=== PATIENT | male | born 1990 | race Caucasian/White ===

== ENCOUNTER 2022-02-05 03:45 | Inpatient (IN) | payer MEDICAID, OTHER ==
[~2022-02-05] VITALS: Ht 182 cm; Wt 79.3 kg
[2022-02-05] MEDS ORDERED: MIDAZOLAM 2 MG/2 ML (VERSED) VIAL IVP ONE (06:00)
[2022-02-05] MEDS ORDERED: fentaNYL INJ 100 MCG/2 ML AMP IVP PRN ×2 (06:45)
[2022-02-05] MEDS: DexMEDEtomidine 250 ML DRIP 250 ML IV SCH ×2 (06:48→20:07)
[2022-02-05] MEDS: PROPOFOL DRIP (ICU) 100 ML IV SCH ×3 (06:48→20:08)
[2022-02-05] MEDS: LACTATED RINGERS 1,000 ML IV SCH ×2 (06:48→20:58)
--- NOTE | 2022-02-05 06:52 | Tele-ICU Progress Note ---
Progress Note 30M transferred from [place] for drug overdose. Recently moved to the area to get clean. Has overdosed about 25 times in the past year, often on heroin. Today he awoke his cousin and told her he was overdosing. The cousin and brother brought him to the ER where he collapsed in the doorway. He was ultimately intubated for airway protection. On arrival to ICU, patient is intubated, on propofol, very agitated. - AMS: secondary to drug overdose. Suspect contaminated samples - tox positive for amphetamines and MDMA, only known to use meth (had another similar report of unknown MDMA ingestion in another patient who believed he was using meth). Continue propofol, start precedex and PRN fentanyl. - Resp failure: intubated for airway protection and hypercapnic resp failure (unclear when he was intubated in relation to ABGs). Hypercapnia was improving at [place], repeat ABG pending. Will adjust vent as needed. - lactic acidosis: lactic 17 at OSH. Repeat ordered along with sepsis work up. More likely related to overdose and or shock state. Focused Exam Height, Weight, BMI Height: '" Weight: lbs. oz. kg; BMI Method: DANILO SCHROEDER MD Feb 05, 2022 06:52
[2022-02-05 07:00] VITALS: BP 95/75
[2022-02-05] MEDS ORDERED: LACTATED RINGERS 1,000 ML IV SCH ×3 (08:15→19:30)
[2022-02-05] MEDS ORDERED: LORazepam INJ 2 MG/ML (ATIVAN) VIAL IVP PRN (08:15)
[2022-02-05 08:41] LABS: ABG BASE EXCESS -4.3 MMOL/L (-2.5-2.5); ABG OXYGEN SATURATION 95 % (94-100); ABG PCO2 37 MMHG (35-45); ABG PH 7.36 (7.37-7.43); ABG PO2 69 MMHG (79-93); ABG TCO2 21.6 MMOL/L (21.0-31.0)
--- NOTE | 2022-02-05 08:42 | Tele-ICU Consult ---
History of Present Illness History of Present Illness Date Seen by Provider: Feb 05, 2022 Time Seen by Provider: 08:42 History of Present Illness (Tele-ICU Physician , follow up note ) New labs / Images reviewed Video assessment done using teleICU camera Discussed with RN. CPM - cont benzo PRN , precedex , fentanyl prn - try to wake for SBT assessment Hypotension probably related to sedatives, cont IVF , follow Allergies and Home Medications Allergies Coded Allergies: No Known Drug Allergies (Unverified , 02/05/22) Past Medical/Social/Family Hx Patient Social History Smoking Status: Unknown if Ever Smoked Current Status Communicates: Unable To Communicate Primary Language: German Focused Exam Height, Weight, BMI Height: '" Weight: lbs. oz. kg; 23.54 BMI Method: Exam Exam Patient acknowledged, consented, and participated in this virtual visit which was conducted using real time audio/video Vital Signs Date Time Temp Pulse Resp B/P (MAP) Pulse Ox O2 Delivery O2 Flow Rate FiO2 02/05/22 07:00 84 02/05/22 06:54 84 18 83/50 100 Mechanical Ventilator 50.00 02/05/22 06:48 10 126/52 02/05/22 06:48 100 106/52 02/05/22 06:46 82 17 82/55 99 Mechanical Ventilator 50.00 02/05/22 06:45 84 18 80/57 99 Mechanical Ventilator 50.00 02/05/22 06:30 88 18 88/62 98 Mechanical Ventilator 50.00 02/05/22 06:30 99 Mechanical Ventilator 50 02/05/22 06:15 91 14 84/60 99 Mechanical Ventilator 50.00 02/05/22 06:00 96 13 106/74 92 Mechanical Ventilator 50.00 02/05/22 06:00 36.0 92 17 106/74 100 Mechanical Ventilator 50.00 02/05/22 05:59 97 Height & Weight Height: '" Weight: lbs. oz. kg; 23.54 BMI Method: HUGO KOTHARI MD Feb 05, 2022 08:42
[2022-02-05 08:43] LABS: BILIRUBIN,URINE NEGATIVE (NEGATIVE); CLARITY,URINE CLOUDY; COLOR,URINE YELLOW; GLUCOSE, URINE (UA) NEGATIVE (NEGATIVE); KETONES,URINE NEGATIVE (NEGATIVE); LEUKOCYTE ESTERASE ,URINE NEGATIVE (NEGATIVE); NITRITE,URINE NEGATIVE (NEGATIVE); PROTEIN,URINE NEGATIVE (NEGATIVE)
[2022-02-05 08:43] LABS: ALLENS TEST YES-POS; INSPIRED O2 50%; PATIENT TEMP 36.1; VENTILATOR NO
[2022-02-05 08:53] LABS: BACTERIA,URINE NEGATIVE /HPF; URIC ACID CRYSTALS,URINE MODERATE /LPF; WBC,URINE RARE /HPF
[2022-02-05] MEDS ORDERED: DIAZEPAM INJ 10 MG/2 ML (VALIUM) SYR IVP PRN (09:00)
[2022-02-05 09:02] LABS: BASOPHILS % (AUTO) 0 % (0-10); EOSINOPHILS # (AUTO) 0.2 10^3/uL (0.0-0.3); EOSINOPHILS % (AUTO) 1 % (0-10); HEMATOCRIT 40 % (40-54); HEMOGLOBIN 12.8 g/dL (13.3-17.7); LYMPHOCYTES # (AUTO) 2.2 10^3/uL (1.0-4.0); LYMPHOCYTES % (AUTO) 13 % (12-44); MEAN CORPUSCULAR HEMOGLOBIN 29 pg (25-34); MEAN CORPUSCULAR HGB CONC 32 g/dL (32-36); MEAN CORPUSCULAR VOLUME 90 fL (80-99); MEAN PLATELET VOLUME 9.3 fL (9.0-12.2); MONOCYTES % (AUTO) 6 % (0-12); NEUTROPHILS # (AUTO) 13.9 10^3/uL (1.8-7.8); NEUTROPHILS % (AUTO) 79 % (42-75); PLATELET COUNT 314 10^3/uL (130-400); WHITE BLOOD COUNT 17.5 10^3/uL (4.3-11.0)
[2022-02-05 09:08] LABS: ALBUMIN 3.3 GM/DL (3.2-4.5); POTASSIUM 4.7 MMOL/L (3.6-5.0)
[2022-02-05 09:09] LABS: CALCIUM 8.3 MG/DL (8.5-10.1)
[2022-02-05 09:11] LABS: TOTAL PROTEIN 5.4 GM/DL (6.4-8.2)
[2022-02-05 09:12] LABS: BILIRUBIN,TOTAL 0.4 MG/DL (0.1-1.0)
[2022-02-05 09:13] LABS: FIBRIN DEGRADATION PRODUCTS 1.15 UG/ML (0.00-0.49); INR 1.2 (0.8-1.4); PROTHROMBIN TIME PATIENT 15.1 SEC (12.2-14.7)
[2022-02-05 09:14] LABS: CREATININE SERUM 1.26 MG/DL (0.60-1.30); PHOSPHORUS 3.3 MG/DL (2.3-4.7)
[2022-02-05 09:17] LABS: MAGNESIUM 1.6 MG/DL (1.6-2.4)
[2022-02-05 10:02] LABS: BAND NEUTROPHILS 0 %; BASOPHILS % (MANUAL) 0 %; EOSINOPHILS % (MANUAL) 0 %; LYMPHOCYTES % (MANUAL) 13 %; MONOCYTES % (MANUAL) 3 %; NEUTROPHILS % (MANUAL) 84 %; RBC MORPH NORMAL
[2022-02-05 10:50] VITALS: BP 72/38
[2022-02-05] MEDS ORDERED: CALCIUM CARBONATE 500 MG (TUMS) TAB.CHEW PO PRN (11:00)
[2022-02-05] MEDS ORDERED: ONDANSETRON 4 MG (ZOFRAN) ORAL DISSOLVE TAB PO PRN (11:00)
[2022-02-05] MEDS ORDERED: diphenhydrAMINE 25 MG TAB (BENADRYL) PO PRN (11:00)
[2022-02-05] MEDS ORDERED: diphenhydrAMINE 50 MG/ML INJ (BENADRYL) IVP PRN (11:00)
[2022-02-05] MEDS ORDERED: ONDANSETRON 4 MG/2 ML (SDV) Z0FRAN IV PRN (11:00)
[2022-02-05] MEDS ORDERED: ACETAMINOPHEN 325 MG TABLET PO PRN (11:00)
[2022-02-05] MEDS ORDERED: polyethylene glycoL POWDER 17 GM (MIRALAX) PACK PO PRN (11:00)
[2022-02-05] MEDS ORDERED: EPINEPHrine 1 MG INJECTION 4 MG in NS (IVPB) 248 ML IV SCH (11:00)
[2022-02-05] MEDS ORDERED: ANTACID SUSP 30 ML UDC (MYLANTA) PO PRN (11:00)
[2022-02-05] MEDS ORDERED: MELATONIN 3 MG TABLET PO PRN (11:00)
[2022-02-05] MEDS ORDERED: NOREPINEPHRINE 8 MG/250 ML 250 ML IV ONE (11:05)
[2022-02-05] MEDS: NOREPINEPHRINE 8 MG/250 ML 250 ML IV SCH (11:10)
[2022-02-05] MEDS: fentaNYL INJ 100 MCG/2 ML AMP IVP PRN (11:23)
--- NOTE | 2022-02-05 11:53 | Diagnostic Imaging Report ---
EXAMINATION: Chest, one view. HISTORY: Intubation. COMPARISON: None available. FINDINGS: Heart size and pulmonary vasculature are normal. The lungs are clear without consolidation, pleural effusion, or pneumothorax. The osseous structures are intact. Endotracheal tube is unchanged above the drew. An enteric catheter is present coursing below the diaphragm. IMPRESSION: 1. No acute radiographic abnormality in the chest. Dictated by: Dictated on workstation # [id number]
[2022-02-05] MEDS: VASOPRESSIN INJECTION 20 UNIT in NS (IVPB) 100 ML IV SCH (11:56)
--- NOTE | 2022-02-05 12:57 | Diagnostic Imaging Report ---
Indication: PICC line placement. Time of Exam: 12:14 PM Comparison is made with prior chest earlier same day. ET tube has tip above the drew. NG tube passes into the stomach. There is a right upper extremity PICC line with tip overlying the SVC right atrial junction. Lungs are clear. No effusion or pneumothorax is seen. Impression: Satisfactory PICC line placement. Dictated by: Dictated on workstation # [id number]
[2022-02-05] MEDS ORDERED: VANCOMYCIN INJECTION 0.1 MG in NS (IVPB) 250 ML IV SCH (13:00)
[2022-02-05 13:13] LABS: AMPHETAMINE SCREEN, URINE POSITIVE (NEGATIVE); BARBITURATE SCREEN URINE NEGATIVE (NEGATIVE); BENZODIAZEPINES SCREEN URINE NEGATIVE (NEGATIVE); CANNABINOID SCREEN, URINE POSITIVE (NEGATIVE); COCAINE SCREEN URINE NEGATIVE (NEGATIVE); METHADONE STAT NEGATIVE (NEGATIVE); OPIATE SCREEN URINE NEGATIVE (NEGATIVE); OXYCODONE STAT NEGATIVE (NEGATIVE); PROPOXYPHENE STAT NEGATIVE (NEGATIVE); TRICYCLIC ANTIDEPRESSANTS SCRE NEGATIVE (NEGATIVE)
[2022-02-05] MEDS ORDERED: PIPERACILLIN SODIUM/TAZOBACTAM 4.5 GM in NS (IVPB) 100 ML IV NR (13:15)
[2022-02-05] MEDS ORDERED: VANCOMYCIN 1500 MG/NS 500 ML IVPB IV SCH ×2 (14:00)
[2022-02-05] MEDS: inSUlin ASPART (NovoLOG) 1 UNIT/0.01 ML (CHARGE PER UNIT) SC SCH ×2 (14:56→17:23)
[2022-02-05] MEDS: ENOXAPARIN 40 MG/0.4 ML (LOVENOX) SYR SC SCH (14:56)
[2022-02-05 15:45] VITALS: BP 114/84
[2022-02-05 17:36] LABS: CALCIUM 8.4 MG/DL (8.5-10.1)
[2022-02-05 17:54] LABS: CREATININE SERUM 0.97 MG/DL (0.60-1.30)
[2022-02-05 18:40] VITALS: BP 96/66
--- NOTE | 2022-02-05 18:47 | History & Physical-Hospitalist ---
History of Present Illness HPI/Chief Complaint Froy Ludwig is a 30 year old male with PMH polysubstance abuse who recently moved to the area to try to get clean. He reportedly told his cousin he was overdosing and he was taken to the [place] ER. He apparently collapsed at the door of the ER. He was intubated for airway protection. He is unable to provide any history due to sedation. There is no family at the beside. Source: RN/MD Exam Limitations: clinical condition Date Seen 02/05/22 Time Seen by a Provider: 10:50 Attending Physician PCP Admitting Physician: Jon Franco MD Attending Physician: Jon Franco MD Referring Physician Date of Admission Feb 05, 2022 at 05:44 Home Medications & Allergies Home Medications Reviewed patient Home Medication Reconciliation performed by pharmacy medication reconciliations radiological technician and/or nursing. Patients Allergies have been reviewed. Allergies Allergies Coded Allergies No Known Drug Allergies (Unverified02/05/22) Past Npctvtf-Lmuptx-Cnsxxh Hx Patient Social History Smoking Status: Unknown if Ever Smoked Current Status Communicates: Unable To Communicate Primary Language: Romanian Family Medical History No Pertinent Family Hx Review of Systems Constitutional: see HPI Physical Exam Physical Exam Vital Signs Vital Signs - First Documented 02/05/22 02/05/22 05:59 06:30 Pulse 97 FiO2 50 Capillary Refill : Height, Weight, BMI Height: '" Weight: lbs. oz. kg; 23.54 BMI Method: General Appearance: No Apparent Distress, WD/WN, Other (intubated and sedated) Neck: Normal Inspection, Supple Respiratory: Lungs Clear, No Respiratory Distress, Other (intubated and mechanically ventilated) Cardiovascular: Regular Rate, Rhythm, No Edema, No Murmur Gastrointestinal: Normal Bowel Sounds, Soft Extremity: Normal Inspection, No Pedal Edema Neurologic/Psychiatric: Other (sedated) Skin: Normal Color, Cool Results Results/Procedures Labs Laboratory Tests 02/05/22 08:33 02/05/22 13:38 Patient resulted labs reviewed. Imaging: Reviewed Imaging Films, Reviewed Imaging Report Assessment/Plan Admission Diagnosis Polysubstance overdose Admission Status: Inpatient Order (span 2 midnights) Reason for Inpatient Admission: Mechanical ventilation Assessment and Plan Polysubstance overdose Shock Lactic acidosis UDS positvie for methamphetamine, amphetamine, and cannibis, reportedly on other drugs as well Plasma drug screen pending Possibly septic, leukocytosis and tachycardia No infectious source identified at this time Procal elevated Blood pressures very low Begin Levophed, pressors as needed Begin Vanc and Zosyn IV fluids TeleICU consulted Social work consulted DVT prophylaxis: Lovenox Critical Care Critically Ill Patient Diagnosis/Problems Diagnosis/Problems (1) Polysubstance overdose Status: Acute Qualifiers: Encounter type: initial encounter Injury intent: undetermined intent Qualified Codes: T50.904A - Poisoning by unspecified drugs, medicaments and biological substances, undetermined, initial encounter (2) Endotracheally intubated Status: Acute (3) Shock Status: Acute (4) Lactic acidosis Status: Acute RYAN JAIMES MD Feb 05, 2022 18:47
[2022-02-05] MEDS ORDERED: ENOXAPARIN 40 MG/0.4 ML (LOVENOX) SYR SQ SCH (19:00)
[2022-02-05] MEDS ORDERED: NS IV 1000 ML 1,000 ML ONE (19:26)
[2022-02-05] MEDS: DOPamine DRIP 250 ML IV SCH (19:37)
[2022-02-05] MEDS: PIPERACILLIN SODIUM/TAZOBACTAM 4.5 GM in NS (IVPB) 100 ML IV SCH (19:43)
[2022-02-05 22:10] VITALS: BP 117/73
[2022-02-06] MEDS: VASOPRESSIN INJECTION 20 UNIT in NS (IVPB) 100 ML IV SCH ×3 (00:50→20:42)
[2022-02-06] MEDS: inSUlin ASPART (NovoLOG) 1 UNIT/0.01 ML (CHARGE PER UNIT) SC SCH ×3 (00:50→12:00)
[2022-02-06] MEDS: PROPOFOL DRIP (ICU) 100 ML IV SCH ×2 (01:02→05:52)
[2022-02-06] MEDS: VANCOMYCIN 1250 MG/NS 250 ML IVPB IV SCH ×4 (02:00→14:20)
[2022-02-06 02:41] VITALS: BP 128/77
[2022-02-06] MEDS: fentaNYL INJ 100 MCG/2 ML AMP IVP PRN (04:50)
[2022-02-06] MEDS: PIPERACILLIN SODIUM/TAZOBACTAM 4.5 GM in NS (IVPB) 100 ML IV SCH ×3 (04:51→20:56)
[2022-02-06] MEDS: NOREPINEPHRINE 8 MG/250 ML 250 ML IV SCH ×2 (05:09→20:42)
[2022-02-06 05:10] LABS: ABG BASE EXCESS -1.4 MMOL/L (-2.5-2.5); ABG OXYGEN SATURATION 98 % (94-100); ABG PCO2 37 MMHG (35-45); ABG PH 7.41 (7.37-7.43); ABG PO2 88 MMHG (79-93); ABG TCO2 23.8 MMOL/L (21.0-31.0)
[2022-02-06 05:11] LABS: ALLENS TEST YES-POS; BASOPHILS % (AUTO) 0 % (0-10); EOSINOPHILS # (AUTO) 0.9 10^3/uL (0.0-0.3); EOSINOPHILS % (AUTO) 8 % (0-10); HEMATOCRIT 37 % (40-54); HEMOGLOBIN 12.6 g/dL (13.3-17.7); INSPIRED O2 21%; LYMPHOCYTES # (AUTO) 1.8 10^3/uL (1.0-4.0); LYMPHOCYTES % (AUTO) 15 % (12-44); MEAN CORPUSCULAR HEMOGLOBIN 30 pg (25-34); MEAN CORPUSCULAR HGB CONC 34 g/dL (32-36); MEAN CORPUSCULAR VOLUME 89 fL (80-99); MEAN PLATELET VOLUME 9.5 fL (9.0-12.2); MONOCYTES # (AUTO) 0.7 10^3/uL (0.0-1.0); MONOCYTES % (AUTO) 6 % (0-12); NEUTROPHILS # (AUTO) 8.7 10^3/uL (1.8-7.8); NEUTROPHILS % (AUTO) 71 % (42-75); PATIENT TEMP 36.7; PLATELET COUNT 281 10^3/uL (130-400); VENTILATOR YES; WHITE BLOOD COUNT 12.2 10^3/uL (4.3-11.0)
[2022-02-06 05:22] LABS: POTASSIUM 4.1 MMOL/L (3.6-5.0)
[2022-02-06 05:23] LABS: CALCIUM 7.9 MG/DL (8.5-10.1)
[2022-02-06 05:27] LABS: CREATININE SERUM 0.85 MG/DL (0.60-1.30); PHOSPHORUS 3.1 MG/DL (2.3-4.7)
[2022-02-06 05:30] LABS: MAGNESIUM 1.7 MG/DL (1.6-2.4)
[2022-02-06] MEDS: POTASSIUM CL 10MEQ/50ML IVPB 50 ML IV SCH (05:55)
[2022-02-06] MEDS: KCL 20 MEQ TAB (K-DUR) PO SCH (05:56)
[2022-02-06] MEDS: MAGNESIUM 1 GM/100 ML IVPB 100 ML IV SCH ×2 (05:56→06:03)
[2022-02-06] MEDS ORDERED: KCL 20 MEQ TAB (K-DUR) PO SCH (06:00)
[2022-02-06] MEDS ORDERED: POTASSIUM CL 10MEQ/50ML IVPB 50 ML IV SCH (06:00)
[2022-02-06] MEDS ORDERED: MAGNESIUM 1 GM/100 ML IVPB 100 ML IV SCH (06:00)
[2022-02-06 06:38] VITALS: BP 121/73
--- NOTE | 2022-02-06 09:36 | Tele-ICU Progress Note ---
Subjective Date Seen by a Provider: Feb 06, 2022 Time Seen by a Provider: 09:36 Subjective/Events-last exam Available chart/vitals/labs/images reviewed. Video assessment done using telemetry ICU camera, rest of exam as per RN. Discussion with the RN, exam as per RN. Hospital course This patient admitted with overdose of methamphetamine, cannabis and became unresponsive requiring intubation and mechanical ventilation. Currently he is sedated. Hemodynamically stable and urine output is good he is afebrile. We will plan to wean sedation and try if possible on SBT today. Review of Systems ROS PER RN Sepsis Event Evaluation Height, Weight, BMI Height: '" Weight: lbs. oz. kg; 23.54 BMI Method: Focused Exam Lactate Level 02/05/22 08:33: Lactic Acid Level 2.24*H 02/05/22 10:33: Lactic Acid Level 2.03*H 02/05/22 13:38: Lactic Acid Level 1.46 Exam Exam Patient acknowledged, consented, and participated in this virtual visit which was conducted using real time audio/video Vital Signs Date Time Temp Pulse Resp B/P (MAP) Pulse Ox O2 Delivery O2 Flow Rate FiO2 02/06/22 08:00 36.6 02/06/22 08:00 97 Mechanical Ventilator 21 02/06/22 06:38 80 18 97 21 02/06/22 06:00 84 17 120/81 97 Mechanical Ventilator 21.00 02/06/22 05:52 66 128/77 02/06/22 05:00 64 17 127/77 98 Mechanical Ventilator 21.00 02/06/22 04:00 67 18 129/83 98 Mechanical Ventilator 21.00 02/06/22 04:00 Mechanical Ventilator 21 02/06/22 03:00 67 17 128/82 98 Mechanical Ventilator 21.00 02/06/22 02:41 66 18 98 21 02/06/22 02:00 67 17 129/79 98 Mechanical Ventilator 21.00 02/06/22 02:00 36.7 02/06/22 01:02 64 124/74 02/06/22 01:00 64 02/06/22 01:00 64 17 125/80 98 Mechanical Ventilator 21.00 02/06/22 00:00 64 18 124/74 97 Mechanical Ventilator 21.00 02/06/22 00:00 36.0 7/13/22 23:59 Mechanical Ventilator 35 02/05/22 23:00 66 18 122/73 97 Mechanical Ventilator 21.00 02/05/22 22:10 67 18 100 35 02/05/22 22:00 68 17 117/68 100 Mechanical Ventilator 21.00 02/05/22 21:00 72 18 118/71 100 Mechanical Ventilator 35.00 02/05/22 20:08 75 96/66 02/05/22 20:07 75 96/66 02/05/22 20:00 36.3 Mechanical Ventilator 35.00 02/05/22 20:00 Mechanical Ventilator 35 02/05/22 20:00 66 18 126/70 99 Mechanical Ventilator 35.00 02/05/22 19:37 75 96/66 02/05/22 19:00 75 17 141/81 100 Mechanical Ventilator 35.00 02/05/22 19:00 75 02/05/22 18:44 100 Mechanical Ventilator 35.00 02/05/22 18:40 75 18 100 50 02/05/22 18:00 76 17 92/69 100 Mechanical Ventilator 50.00 02/05/22 17:00 75 17 102/73 100 Mechanical Ventilator 50.00 02/05/22 16:41 36.5 02/05/22 16:41 100 Mechanical Ventilator 50.00 02/05/22 16:40 98/71 02/05/22 16:25 Mechanical Ventilator 50 02/05/22 16:00 75 17 98/64 100 Mechanical Ventilator 80.00 02/05/22 15:45 72 18 100 60 02/05/22 15:00 80 18 113/82 100 Mechanical Ventilator 80.00 02/05/22 14:00 75 18 113/86 100 Mechanical Ventilator 80.00 02/05/22 13:00 77 18 111/86 100 Mechanical Ventilator 80.00 02/05/22 13:00 44 02/05/22 12:35 Mechanical Ventilator 80 02/05/22 12:00 61 17 116/84 100 Mechanical Ventilator 80.00 02/05/22 11:10 75 71/37 02/05/22 11:00 75 18 71/37 96 Mechanical Ventilator 21.00 02/05/22 10:50 80 18 96 21 02/05/22 10:00 83 18 62/40 97 Mechanical Ventilator 21.00 I & O 02/06/22 06:59 Intake Total 2100 ml Output Total 3220 ml Balance -1120 ml Height & Weight Height: '" Weight: lbs. oz. kg; 23.54 BMI Method: General Appearance: No Apparent Distress, WD/WN, Other (intubated and sedated) Neck: Normal Inspection, Supple Respiratory: Lungs Clear, No Respiratory Distress, Other (intubated and mechanically ventilated) Cardiovascular: Regular Rate, Rhythm, No Edema, No Murmur Extremity: Normal Inspection, No Pedal Edema Neurologic/Psychiatric: Other (sedated) Skin: Normal Color, Cool Other comments PE PER RN Results Lab Laboratory Tests 02/05/22 08:33 02/05/22 13:38 02/06/22 04:55 Assessment/Plan Assessment/Plan 1. Acute hypoxic respiratory failure secondary to drug overdose 2. Polysubstance abuse. Recommendations 1. We will decrease sedation and try SBT today. 2. Continue hydration with IV fluids 3. DVT prophylaxis and ulcer prophylaxis 4. Broad spectrum antibiotics per primary care Critical Care: Ventilator Management Time spent with patient (mins): 35 PETER PIEDRA MD Feb 06, 2022 09:36
[2022-02-06 09:56] VITALS: BP 109/69
[2022-02-06] MEDS: LACTATED RINGERS 1,000 ML IV SCH ×2 (10:22→22:53)
[2022-02-06] MEDS: ENOXAPARIN 40 MG/0.4 ML (LOVENOX) SYR SC SCH (10:23)
[2022-02-06 10:33] VITALS: BP 106/73
[2022-02-06 11:20] LABS: ABG BASE EXCESS -0.8 MMOL/L (-2.5-2.5); ABG OXYGEN SATURATION 96 % (94-100); ABG PCO2 40 MMHG (35-45); ABG PH 7.39 (7.37-7.43); ABG PO2 76 MMHG (79-93); ABG TCO2 24.9 MMOL/L (21.0-31.0)
[2022-02-06 11:22] LABS: ALLENS TEST YES-POS; INSPIRED O2 21%
[2022-02-06 11:23] LABS: PATIENT TEMP 36.5; VENTILATOR NO
[2022-02-06] MEDS ORDERED: methylPREDNISolone 125 MG (Solu-MEDROL) VIAL IVP NR (14:45)
[2022-02-06] MEDS ORDERED: diphenhydrAMINE 50 MG/ML INJ (BENADRYL) IVP NR (14:45)
[2022-02-06] MEDS ORDERED: FAMOTIDINE 20MG/2ML IV (PEPCID) IVP NR (14:45)
[2022-02-06] MEDS ORDERED: diphenhydrAMINE 50 MG/ML INJ (BENADRYL) IVP PRN (14:45)
--- NOTE | 2022-02-06 16:37 | Progress Note - Hospitalist ---
Subjective HPI/CC On Admission Date Seen by Provider: Feb 06, 2022 Time Seen by Provider: 09:25 Froy Ludwig is a 30 year old male with PMH polysubstance abuse who recently moved to the area to try to get clean. He reportedly told his cousin he was overdosing and he was taken to the [place] ER. He apparently collapsed at the door of the ER. He was intubated for airway protection. He is unable to provide any history due to sedation. There is no family at the beside. Subjective/Events-last exam He remains intubated and sedated. Focused Exam Lactate Level 02/05/22 08:33: Lactic Acid Level 2.24*H 02/05/22 10:33: Lactic Acid Level 2.03*H 02/05/22 13:38: Lactic Acid Level 1.46 Objective Exam Vital Signs Vital Signs Date Time Temp Pulse Resp B/P (MAP) Pulse Ox O2 Delivery O2 Flow Rate FiO2 02/06/22 12:00 Nasal Cannula 2.00 02/06/22 11:00 86 9 109/63 98 02/06/22 10:33 21 02/06/22 08:00 36.6 Capillary Refill : General Appearance: No Apparent Distress, WD/WN, Other (intubated) Respiratory: Lungs Clear, No Respiratory Distress, Other (mechanically ventilated) Cardiovascular: Regular Rate, Rhythm, No Murmur Gastrointestinal: Normal Bowel Sounds, Soft Extremity: Normal Inspection, No Pedal Edema Neurologic/Psychiatric: Other (sedated) Skin: Normal Color, Warm/Dry Results/Procedures Lab Laboratory Tests 02/06/22 04:55 Patient resulted labs reviewed. Imaging: Reviewed Imaging Report Assessment/Plan Assessment and Plan Assess & Plan/Chief Complaint Polysubstance overdose Shock UDS positvie for methamphetamine, amphetamine, and cannibis, reportedly on other drugs as well No infectious source identified at this time Procal elevated Currently on Dopamine Stop Vanc Continue Zosyn IV fluids TeleICU following Social work consulted DVT prophylaxis: Lovenox Lactic acidosis, resolved Critical Care Ventilator Management Diagnosis/Problems Diagnosis/Problems (1) Polysubstance overdose Status: Acute Qualifiers: Encounter type: initial encounter Injury intent: undetermined intent Qualified Codes: T50.904A - Poisoning by unspecified drugs, medicaments and biological substances, undetermined, initial encounter (2) Endotracheally intubated Status: Acute (3) Shock Status: Acute (4) Lactic acidosis Status: Resolved Resolution Date/Time: 02/06/22 @ 16:37 RYAN JAIMES MD Feb 06, 2022 16:37
[2022-02-06] MEDS: DOPamine DRIP 250 ML IV SCH (20:42)
[2022-02-06] MEDS: FAMOTIDINE 20MG/2ML IV (PEPCID) IVP SCH (20:56)
[2022-02-06] MEDS: methylPREDNISolone 125 MG (Solu-MEDROL) VIAL IVP SCH (20:56)
[2022-02-07] MEDS ORDERED: TROUGH ORDER-PHARMACY XX NR (01:00)
[2022-02-07 01:12] LABS: BASOPHILS % (AUTO) 0 % (0-10); EOSINOPHILS # (AUTO) 0.1 10^3/uL (0.0-0.3); EOSINOPHILS % (AUTO) 1 % (0-10); HEMATOCRIT 35 % (40-54); HEMOGLOBIN 11.4 g/dL (13.3-17.7); LYMPHOCYTES # (AUTO) 0.8 10^3/uL (1.0-4.0); LYMPHOCYTES % (AUTO) 7 % (12-44); MEAN CORPUSCULAR HEMOGLOBIN 29 pg (25-34); MEAN CORPUSCULAR HGB CONC 33 g/dL (32-36); MEAN CORPUSCULAR VOLUME 88 fL (80-99); MEAN PLATELET VOLUME 9.4 fL (9.0-12.2); MONOCYTES # (AUTO) 0.1 10^3/uL (0.0-1.0); MONOCYTES % (AUTO) 1 % (0-12); NEUTROPHILS # (AUTO) 10.5 10^3/uL (1.8-7.8); NEUTROPHILS % (AUTO) 91 % (42-75); PLATELET COUNT 279 10^3/uL (130-400); WHITE BLOOD COUNT 11.6 10^3/uL (4.3-11.0)
[2022-02-07 01:23] LABS: POTASSIUM 3.6 MMOL/L (3.6-5.0)
[2022-02-07 01:24] LABS: CALCIUM 8.6 MG/DL (8.5-10.1)
[2022-02-07 01:28] LABS: PHOSPHORUS 2.9 MG/DL (2.3-4.7)
[2022-02-07 01:29] LABS: CREATININE SERUM 1.01 MG/DL (0.60-1.30)
[2022-02-07] MEDS: VANCOMYCIN 1250 MG/NS 250 ML IVPB IV SCH ×2 (02:17)
[2022-02-07] MEDS: PIPERACILLIN SODIUM/TAZOBACTAM 4.5 GM in NS (IVPB) 100 ML IV SCH (04:34)
[2022-02-07] MEDS: methylPREDNISolone 125 MG (Solu-MEDROL) VIAL IVP SCH (06:00)
[2022-02-07] MEDS: VASOPRESSIN INJECTION 20 UNIT in NS (IVPB) 100 ML IV SCH (06:03)
[2022-02-07] MEDS: POTASSIUM CL 10MEQ/50ML IVPB 50 ML IV SCH (06:03)
[2022-02-07] MEDS: MAGNESIUM 1 GM/100 ML IVPB 100 ML IV SCH (06:03)
[2022-02-07] MEDS: KCL 20 MEQ TAB (K-DUR) PO SCH (06:03)
[2022-02-07] MEDS: FAMOTIDINE 20MG/2ML IV (PEPCID) IVP SCH (07:34)
--- NOTE | 2022-02-07 07:50 | Tele-ICU Progress Note ---
Subjective Date Seen by a Provider: Feb 07, 2022 Time Seen by a Provider: 07:50 Subjective/Events-last exam Available chart/vitals/labs/images reviewed. Video assessment done using telemetry ICU camera, rest of exam as per RN. Discussion with the RN, exam as per RN. Hospital course Patient was extubated after SBT yesterday and tolerated very well. However in the evening he developed tongue swelling and some itching and there was a concern for whether he is developing any angioneurotic edema hence he is started on a Benadryl IV Solu-Medrol and Pepcid. Today he states he is feeling somewhat better but he still has some throat discomfort and it is not clear whether he had any tongue swelling today however RN reports he is eating without any difficulty and he passes swallow evaluation. With the video visit he does not seems to be in any acute respiratory distress. Review of Systems ROS PER RN Sepsis Event Evaluation Height, Weight, BMI Height: '" Weight: lbs. oz. kg; 23.54 BMI Method: Focused Exam Lactate Level 02/05/22 08:33: Lactic Acid Level 2.24*H 02/05/22 10:33: Lactic Acid Level 2.03*H 02/05/22 13:38: Lactic Acid Level 1.46 Exam Exam Patient acknowledged, consented, and participated in this virtual visit which was conducted using real time audio/video Vital Signs Date Time Temp Pulse Resp B/P (MAP) Pulse Ox O2 Delivery O2 Flow Rate FiO2 02/07/22 07:00 86 29 136/79 98 Room Air 02/07/22 07:00 76 02/07/22 06:00 87 23 153/81 100 Room Air 02/07/22 05:00 92 20 115/70 97 Room Air 02/07/22 04:00 91 14 107/60 96 Room Air 02/07/22 04:00 Room Air 02/07/22 03:59 36.8 02/07/22 03:00 85 15 108/62 98 Room Air 02/07/22 02:00 93 18 134/77 98 Room Air 02/07/22 01:00 96 02/07/22 01:00 96 13 107/65 96 Room Air 02/07/22 00:00 93 18 105/70 97 Room Air 02/06/22 23:59 Room Air 02/06/22 23:58 36.6 02/06/22 23:00 101 17 147/89 97 Room Air 02/06/22 22:00 94 15 108/73 100 Room Air 02/06/22 21:00 98 16 139/90 99 Room Air 02/06/22 20:00 37.0 02/06/22 20:00 101 21 99/74 98 Room Air 02/06/22 20:00 Room Air 02/06/22 19:00 80 02/06/22 19:00 80 21 121/74 100 Room Air 02/06/22 18:00 84 11 105/65 Room Air 02/06/22 17:00 96 14 127/84 95 Room Air 02/06/22 16:00 77 14 134/97 97 Room Air 02/06/22 16:00 Room Air 02/06/22 15:00 84 15 124/78 100 Room Air 02/06/22 14:00 75 10 100/91 98 Nasal Cannula 2.00 02/06/22 13:00 89 17 118/69 100 Nasal Cannula 2.00 02/06/22 12:29 76 02/06/22 12:00 Nasal Cannula 2.00 02/06/22 12:00 82 17 102/59 98 Nasal Cannula 2.00 02/06/22 11:32 Nasal Cannula 2.00 02/06/22 11:00 86 9 109/63 98 Mechanical Ventilator 21.00 02/06/22 10:33 89 20 96 21 02/06/22 10:00 75 18 115/69 97 Mechanical Ventilator 21.00 02/06/22 09:56 74 18 97 21 02/06/22 09:00 77 17 109/69 97 Mechanical Ventilator 21.00 02/06/22 08:00 82 18 108/69 97 Mechanical Ventilator 21.00 02/06/22 08:00 36.6 02/06/22 08:00 97 Mechanical Ventilator 21 I & O 02/07/22 07:00 Intake Total 1712.5 ml Output Total 2900 ml Balance -1187.5 ml Height & Weight Height: '" Weight: lbs. oz. kg; 23.54 BMI Method: General Appearance: No Apparent Distress, WD/WN, Other (intubated) Neck: Normal Inspection, Supple Respiratory: Lungs Clear, No Respiratory Distress, Other (mechanically ventilated) Cardiovascular: Regular Rate, Rhythm, No Murmur Extremity: Normal Inspection, No Pedal Edema Neurologic/Psychiatric: Other (sedated) Skin: Normal Color, Warm/Dry Other comments PE PER RN Results Lab Laboratory Tests 02/05/22 08:33 02/05/22 13:38 02/06/22 04:55 02/07/22 01:00 Assessment/Plan Assessment/Plan 1. Acute hypoxic respiratory failure secondary to drug overdose improved 2. Polysubstance abuse. 3. Tongue swelling with out airway obstruction, ? early aleergic reaction or angioneurotic edema. Recommendations 1. He was extubated on 02/06/2022 and tolerating well. 2. Continue Benadryl, steroids and pepcid 3. DVT prophylaxis and ulcer prophylaxis 4. Broad spectrum antibiotics per primary care. 5. from critical care point of view he may be transferred to med/surg floor. Critical Care: Critically Ill Patient Time spent with patient (mins): 20 PETER PIEDRA MD Feb 07, 2022 07:50
[2022-02-07] MEDS ORDERED: KCL 20 MEQ TAB (K-DUR) PO ONE (09:00)
[2022-02-07] MEDS ORDERED: VANCOMYCIN 1 GM/NS 250 ML IVPB IV SCH ×2 (10:00)
[2022-02-07] MEDS: ENOXAPARIN 40 MG/0.4 ML (LOVENOX) SYR SC SCH (11:23)
--- NOTE | 2022-02-07 13:42 | Discharge Summary ---
Discharge Summary Hospital Course Problems/Dx: (1) Polysubstance overdose Status: Acute Qualifiers: Qualified Codes: T50.904A - Poisoning by unspecified drugs, medicaments and biological substances, undetermined, initial encounter (2) Endotracheally intubated Status: Acute (3) Shock Status: Acute (4) Lactic acidosis Status: Resolved Hospital Course Date of Admission: Feb 05, 2022 at 05:44 Admission Diagnosis : Polysubstance overdose requiring endotracheal intubation Family Physician/Provider: Date of Discharge: 02/07/22 Discharge Diagnosis: Polysubstance overdose requiring endotracheal intubation, shock Hospital Course: Froy Ludwig is a 31 year old male who presented with altered mental status and was admitted with polysubstance overdose. He was intubated in the [place] ER prior to transfer for airway protection. He was requiring pressor support briefly. He was successfully extubated after about a day and half on the ventilator. He denies intentional overdose. He denies suicidal ideation. He was given information regarding resources for support with cessation of drug use. He needs to establish with a primary care physician in the area. He was discharged home in stable condition. Labs and Pending Lab Test: Laboratory Tests 02/07/22 01:00: White Blood Count 11.6H, Red Blood Count 3.94L, Hemoglobin 11.4L, Hematocrit 35L , Mean Corpuscular Volume 88, Mean Corpuscular Hemoglobin 29, Mean Corpuscular Hemoglobin Concent 33, Red Cell Distribution Width 14.1, Platelet Count 279, Mean Platelet Volume 9.4, Immature Granulocyte % (Auto) 0, Neutrophils (%) (Auto) 91H, Lymphocytes (%) (Auto) 7L, Monocytes (%) (Auto) 1, Eosinophils (%) (Auto) 1, Basophils (%) (Auto) 0, Neutrophils # (Auto) 10.5H, Lymphocytes # (Auto) 0.8L, Monocytes # (Auto) 0.1, Eosinophils # (Auto) 0.1, Basophils # (Aut o) 0.0, Immature Granulocyte # (Auto) 0.0, Sodium Level 143, Potassium Level 3.6, Chloride Level 109H, Carbon Dioxide Level 22, Anion Gap 12, Blood Urea Nitrogen 7, Creatinine 1.01, Estimat Glomerular Filtration Rate 103, BUN/Creatinine Ratio 7, Glucose Level 158H, Calcium Level 8.6, Phosphorus Level 2.9, Magnesium Level 2.0, Triglycerides Level 52, Vancomycin Level Trough 8.2L Microbiology 02/05/22 MRSA Screen - Final, Complete MRSA not isolated 02/05/22 Blood Culture - Preliminary, Resulted No growth Home Meds Active No Active Prescriptions or Reported Medications Assessment/Pt Instructions See instructions Discharge Planning: <30 minutes discharge planning Discharge Instructions Discharge Diet: No Restrictions Activity as Tolerated: Yes Consultations TeleICU Discharge Physical Examination Vital Signs Vital Signs Date Time Temp Pulse Resp B/P (MAP) Pulse Ox O2 Delivery O2 Flow Rate FiO2 02/07/22 11:25 02/07/22 10:00 80 19 100 Room Air 02/07/22 07:57 36.4 02/06/22 14:00 2.00 02/06/22 10:33 21 General Appearance: No Apparent Distress, WD/WN Respiratory: Lungs Clear, No Respiratory Distress Cardiovascular: Regular Rate, Rhythm, No Murmur Gastrointestinal: Normal Bowel Sounds, Non Tender, Soft Extremity: Normal Inspection, No Pedal Edema Skin: Normal Color, Warm/Dry Neurologic/Psychiatric: Alert, No Motor/Sensory Deficits, Other (flat affect) Allergies: Coded Allergies: No Known Drug Allergies (Unverified , 02/05/22) Discharge Summary Date of Admission Feb 05, 2022 at 05:44 Date of Discharge Feb 07, 2022 at 11:25 Discharge Date: Feb 07, 2022 Discharge Time: 11:25 Admission Diagnosis Polysubstance overdose Consults/Procedures Consulations TeleICU Discharge Diagnosis Polysubstance overdose Shock (1) Polysubstance overdose Status: Acute Qualifiers: Qualified Codes: T50.904A - Poisoning by unspecified drugs, medicaments and biological substances, undetermined, initial encounter (2) Endotracheally intubated Status: Acute (3) Shock Status: Acute (4) Lactic acidosis Status: Resolved RYAN JAIMES MD Feb 07, 2022 13:42
== END 2022-02-07 11:25 | disposition home or self-care (01) | DRG 917 ==
LOC: EDBD → ICU 05:44
PROVIDERS: ADMIT Internal Medicine; ATTEND Internal Medicine
PROC: 5A1945Z Respiratory Ventilation, 24-96 Consecutive Hours (ICD-10-PCS; principal; 2022-02-05)
PROC: 0BH17EZ Insertion of Endotracheal Airway into Trachea, Via Natural or Artificial Opening (ICD-10-PCS; 2022-02-05)
DX: T43.621A Poisoning by amphetamines, accidental (unintentional), initial encounter (principal); J96.01 Acute respiratory failure with hypoxia; R57.9 Shock, unspecified; E87.2 Acidosis; T40.711A Poisoning by cannabis, accidental (unintentional), initial encounter
CPT/HCPCS: 36415; 36569; 36600; 71045; 76937; 80048; 80053; 80202; 80306; 80307; 81000; 82550; 82805; 82947; 83605; 83735; 84100; 84145; 84478; 84484; 85007; 85025; 85027; 85379; 85384; 85610; 87040; 87081; 93005; 93306; 94002; 94003; 94799